=== PATIENT | male | born 1990 | race Caucasian/White ===

== ENCOUNTER → 2017-02-12 | Outpatient (CLI) | payer OTHER ==
--- NOTE | 2017-02-15 08:52 | SLEEPHOME ---
DATE OF STUDY: 02/12/2017 ORDERING PROVIDER: Mirna Herrera NP Diagnostic home sleep testing was performed due to concern for the obstructive sleep apnea syndrome in this patient with snoring and excessive somnolence. 9 hours and 59 minutes of data were reviewed. Of these, 8 hours and 7 minutes were marked as time in bed. During the interval marked time in bed, there were 41 respiratory events identified of 10 seconds in duration or greater for a respiratory event index of 5. The events were primarily obstructive. Baseline heart rate 64 beats per minute. Pulse rate ranged 38-96. Baseline saturation 93%. Lowest oxygen saturation 86%. Testing was performed in both the supine and nonsupine positions. IMPRESSION: Abnormal home sleep testing with repetitive respiratory events and oxygen desaturation to 86% with a respiratory event index of 5 is consistent with the obstructive sleep apnea syndrome. RECOMMENDATION: The patient should be encouraged to undergo formal sleep testing and in-laboratory pressure titration.
== END ==
LOC: M SLEEP HO 09:06
PROVIDERS: ATTEND Nurse Practitioner Adult Health
DX: G47.30 Sleep apnea, unspecified (principal)